=== PATIENT | male | born 1980 | race Two or more races ===

== ENCOUNTER 2019-09-25 18:54 | Emergency (ER) | payer OTHER ==
[~2019-09-25] VITALS: Ht 175.3 cm; Wt 96.2 kg
[2019-09-25 19:00] VITALS: Ht 175.3 cm; Wt 96.2 kg
[2019-09-25 20:44] VITALS: BP 138/74
== END 2019-09-25 20:44 | disposition home or self-care (01) ==
LOC: ED 18:54
DX: S61.300A Unspecified open wound of right index finger with damage to nail, initial encounter (principal); S62.630A Displaced fracture of distal phalanx of right index finger, initial encounter for closed fracture; W23.0XXA Caught, crushed, jammed, or pinched between moving objects, initial encounter; Y93.89 Activity, other specified; Y92.89 Other specified places as the place of occurrence of the external cause; Y99.8 Other external cause status
CPT/HCPCS: 90715; A4570; J0690; J2001